=== PATIENT | male | born 1990 | race Caucasian/White ===

== ENCOUNTER 2019-11-21 21:33 | Observation (INO) ==
[2019-11-22] MEDS ORDERED: Naloxone 0.4 MG/ML INJ IVP PRN (02:17)
[2019-11-22] MEDS ORDERED: *HR* LORazepam 2 MG/ML VIAL IVP PRN ×3 (02:17)
[2019-11-22] MEDS: clonazePAM 1 MG TABLET PO SCH ×2 (02:29→08:36)
[2019-11-22] MEDS ORDERED: Thiamine (B-1) 100 MG, Folic Acid 1 MG, MVI, adult with vitamin K 10 ML in 0.9 % Sodi... IVPB SCH ×2 (02:34→18:00)
[2019-11-22 05:31] LABS: Hematocrit 48.5 % (37.5-50.1); Hemoglobin 16.6 g/dL (12.9-16.9); Mean Corpuscular HGB Conc 34.2 g/dL (31.6-35.5); Mean Corpuscular Hemoglobin 31.7 pg (28.0-33.3); Mean Corpuscular Volume 92.6 fL (83.0-100.0); Mean Platelet Volume 9.5 fL (9.4-12.4); Platelet Count 260 K/mcL (140-400); Red Blood Count 5.24 M/mcL (4.19-5.50); Red Cell Distribution Width 12.9 % (11.5-14.5); White Blood Count 8.1 K/mcL (4.3-11.1)
[2019-11-22 05:48] LABS: INR 1.1; Prothrombin Time 12.3 Seconds (9.4-12.1)
[2019-11-22 05:49] LABS: Alanine Aminotransferase 27 Units/L (7-52); Albumin 4.1 g/dL (3.5-5.7); Albumin/Globulin Ratio 1.5 (1.1-2.2); Alkaline Phosphatase 104 Units/L (34-104); Aspartate Amino Transferase 39 Units/L (13-39); BUN/Creatinine Ratio 9 (6-26); Bilirubin,Total 0.6 mg/dL (0.3-1.0); Blood Urea Nitrogen 8 mg/dL (6-20); Calcium 8.8 mg/dL (8.6-10.3); Carbon Dioxide 25 mEq/L (23-29); Chloride 102 mEq/L (98-107); Globulin 2.7 g/dL (2.4-3.5); Glucose 79 mg/dL (70-105); Magnesium 2.2 mg/dL (1.6-2.6); Osmolality,Calculated 285 (280-300); Phosphorous 3.4 mg/dL (2.7-4.5); Sodium 139 mEq/L (136-145); Total Protein 6.8 g/dL (6.4-8.9); eGFR For African Americans > 60 (> 60); eGFR For Non-African Americans > 60 (> 60)
[2019-11-22 09:03] VITALS: BP 112/69
[2019-11-22] MEDS ORDERED: amLODIPine 5 MG TABLET PO SCH (21:00)
[2019-11-25] MEDS ORDERED: Vitamin B Complex/Vit C/Vit E 1 EACH TABLET PO SCH (09:00)
[2019-11-25] MEDS ORDERED: Folic Acid 1 MG TABLET PO SCH (09:00)
[2019-11-25] MEDS ORDERED: Thiamine (B-1) 100 MG TABLET PO SCH (09:00)
[2019-11-25] MEDS ORDERED: clonazePAM 1 MG TABLET PO SCH (09:00)
== END 2019-11-22 14:10 | disposition home or self-care (01) ==
LOC: EMEROOARM 21:33 → 3BNU 21:33 → SUATTDRO 23:16 → 3BNU 23:47
PROVIDERS: ADMIT Family Medicine; ATTEND Internal Medicine

== ENCOUNTER 2019-12-11 17:15 | Inpatient (IN) ==
[2019-12-11 17:49] LABS: Bilirubin,Urine Negative (Negative); Blood,Urine Negative (Negative); Clarity,Urine Turbid (Clear); Color,Urine Yellow (Yellow); Glucose,Urine (UA) Normal (Normal); Ketones,Urine Negative (Negative); Leukocyte Esterase,Urine Negative (Negative); Nitrite,Urine Negative (Negative); PH,Urine 5.5 pH Units (5.0-8.0); Protein,Urine Negative (Neg-Trace); Specific Gravity,Urine 1.023 (1.010-1.025); Urobilinogen,Urine Normal (Normal)
[2019-12-11 17:52] LABS: Bacteria,Urine None Seen per hpf (None-Few); Hyaline Casts,Urine None Seen per lpf (None-Few); Squamous Epithelial Cell,Urine Moderate per lpf (None-Few); WBC,Urine 0-3 per hpf (0-3)
[2019-12-11 18:00] LABS: Amphetamine Screen,Urine Negative ng/mL (Cutoff=1000); Barbiturate Screen,Urine Negative ng/mL (Cutoff=200); Benzodiazepines Screen,Urine Negative ng/mL (Cutoff=200); Cannabinoid Screen,Urine Negative ng/mL (Cutoff = 50); Cocaine Screen,Urine Negative ng/mL (Cutoff= 300); Opiate Screen,Urine Negative ng/mL (Cutoff=300); Phencyclidine Screen,Urine Negative ng/mL (Cutoff=25)
[2019-12-11 18:26] LABS: Basophils % 0.5 %; Eosinophils # 0.3 K/mcL (0.0-0.6); Eosinophils % 4.9 %; Hematocrit 47.5 % (37.5-50.1); Hemoglobin 16.5 g/dL (12.9-16.9); Immature Granulocytes % 0.4 % (0-4); Lymphocytes # 1.6 K/mcL (0.6-4.6); Lymphocytes % 28.7 %; Mean Corpuscular HGB Conc 34.7 g/dL (31.6-35.5); Mean Corpuscular Hemoglobin 31.7 pg (28.0-33.3); Mean Corpuscular Volume 91.3 fL (83.0-100.0); Mean Platelet Volume 9.5 fL (9.4-12.4); Monocytes # 0.3 K/mcL (0.0-1.3); Monocytes % 6.2 %; Neutrophils # 3.3 K/mcL (1.6-8.9); Platelet Count 213 K/mcL (140-400); Red Cell Distribution Width 13.8 % (11.5-14.5); Segmented Neutrophils % 59.3 %; White Blood Count 5.5 K/mcL (4.3-11.1)
[2019-12-11 18:28] LABS: Estimated Average Glucose 105 mg/dl
[2019-12-11 18:47] LABS: Acetaminophen < 10 mcg/mL (10-20); BUN/Creatinine Ratio 11 (6-26); Blood Urea Nitrogen 9 mg/dL (6-20); Calcium 8.7 mg/dL (8.6-10.3); Carbon Dioxide 26 mEq/L (23-29); Chloride 106 mEq/L (98-107); Chol/HDL Ratio 3.3 (0-4.9); Cholesterol 163 mg/dL (< 200); Ethanol 262 mg/dL (Less than 10); Glucose 125 mg/dL (70-105); HDL Cholesterol 50 mg/dL (40-59); LDL Cholesterol,Calculated 83 mg/dL (0-99); Osmolality,Calculated 292 (280-300); Potassium 3.4 mEq/L (3.5-5.1); Salicylate < 2.5 mg/dL (15.0-30.0); Sodium 141 mEq/L (136-145); Triglycerides 151 mg/dL (< 150); eGFR For African Americans > 60 (> 60); eGFR For Non-African Americans > 60 (> 60)
[2019-12-11] MEDS ORDERED: Acetaminophen 325 MG TABLET PO PRN (20:05)
[2019-12-11] MEDS ORDERED: Ondansetron 4 MG/2 ML VIAL IVP PRN (20:05)
[2019-12-11] MEDS ORDERED: Naloxone 0.4 MG/ML INJ IVP PRN (20:05)
[2019-12-11] MEDS ORDERED: Potassium Citrate 10 MEQ TABLET.ER PO ONE (20:31)
[2019-12-11] MEDS: 0.9 % Sodium Chloride 1,000 ML IVC SCH (21:40)
[2019-12-12] MEDS: *HR* LORazepam 2 MG/ML VIAL IVP PRN ×2 (03:07→08:06)
[2019-12-12 04:24] LABS: Basophils % 0.7 %; Eosinophils # 0.3 K/mcL (0.0-0.6); Hemoglobin 15.4 g/dL (12.9-16.9); Immature Granulocytes % 0.3 % (0-4); Lymphocytes # 1.9 K/mcL (0.6-4.6); Lymphocytes % 30.2 %; Mean Corpuscular Hemoglobin 31.9 pg (28.0-33.3); Mean Corpuscular Volume 91.1 fL (83.0-100.0); Mean Platelet Volume 9.8 fL (9.4-12.4); Monocytes # 0.5 K/mcL (0.0-1.3); Monocytes % 8.3 %; Neutrophils # 3.4 K/mcL (1.6-8.9); Platelet Count 206 K/mcL (140-400); Red Blood Count 4.83 M/mcL (4.19-5.50); Red Cell Distribution Width 13.9 % (11.5-14.5); Segmented Neutrophils % 55.5 %; White Blood Count 6.2 K/mcL (4.3-11.1)
[2019-12-12 04:51] LABS: Alanine Aminotransferase 52 Units/L (7-52); Albumin 3.9 g/dL (3.5-5.7); Albumin/Globulin Ratio 1.4 (1.1-2.2); Alkaline Phosphatase 89 Units/L (34-104); Aspartate Amino Transferase 32 Units/L (13-39); BUN/Creatinine Ratio 13 (6-26); Bilirubin,Total 0.6 mg/dL (0.3-1.0); Blood Urea Nitrogen 10 mg/dL (6-20); Calcium 8.7 mg/dL (8.6-10.3); Carbon Dioxide 26 mEq/L (23-29); Chloride 102 mEq/L (98-107); Globulin 2.7 g/dL (2.4-3.5); Glucose 100 mg/dL (70-105); Magnesium 1.9 mg/dL (1.6-2.6); Osmolality,Calculated 291 (280-300); Phosphorous 2.9 mg/dL (2.7-4.5); Potassium 3.6 mEq/L (3.5-5.1); Sodium 141 mEq/L (136-145); Total Protein 6.6 g/dL (6.4-8.9); eGFR For African Americans > 60 (> 60); eGFR For Non-African Americans > 60 (> 60)
[2019-12-12] MEDS: 0.9 % Sodium Chloride 1,000 ML IVC SCH (05:43)
[2019-12-12 07:44] VITALS: BP 99/64
[2019-12-12] MEDS ORDERED: Folic Acid 1 MG TABLET PO SCH (09:00)
[2019-12-12] MEDS ORDERED: clonazePAM 1 MG TABLET PO SCH (09:00)
[2019-12-12] MEDS ORDERED: Thiamine (B-1) 100 MG, Folic Acid 1 MG, MVI, adult with vitamin K 10 ML in 0.9 % Sodi... IVPB SCH (18:00)
[2019-12-12] MEDS ORDERED: amLODIPine 5 MG TABLET PO SCH (21:00)
[2019-12-16] MEDS ORDERED: clonazePAM 1 MG TABLET PO SCH (09:00)
== END 2019-12-12 16:17 | disposition other institution (70) | DRG 753 ==
LOC: 3BNU 17:15 → EMEROOARM 17:15 → SUATTDRO 19:39 → 3BNU 20:29
PROVIDERS: ADMIT Internal Medicine; ATTEND Internal Medicine

== ENCOUNTER 2019-12-12 16:05 | Observation (INO) ==
[2019-12-12] MEDS ORDERED: Acetaminophen 325 MG TABLET PO PRN (16:36)
[2019-12-12] MEDS ORDERED: Mag Hydrox/Al Hydrox/Simeth 30 ML UDC PO PRN (16:36)
[2019-12-12] MEDS ORDERED: hydrOXYzine pamoate 25 MG CAPSULE PO PRN (16:36)
[2019-12-12] MEDS ORDERED: *HR* LORazepam 1 MG TABLET PO PRN ×2 (16:36→16:40)
[2019-12-12] MEDS ORDERED: MOM Conc 10 ML UD.LIQ PO PRN (16:36)
[2019-12-12] MEDS ORDERED: traZODone 50 MG TABLET PO PRN (16:36)
[2019-12-12] MEDS ORDERED: *HR* LORazepam 2 MG/ML VIAL IM PRN (16:36)
[2019-12-12] MEDS ORDERED: Haloperidol Lactate 5 MG/ML VIAL IM PRN (16:36)
[2019-12-12] MEDS: clonazePAM 1 MG TABLET PO SCH (20:08)
[2019-12-12] MEDS ORDERED: amLODIPine 5 MG TABLET PO SCH (21:00)
[2019-12-13] MEDS ORDERED: Thiamine (B-1) 100 MG TABLET PO SCH (09:00)
[2019-12-13] MEDS ORDERED: Vitamin B Complex/Vit C/Vit E 1 EACH TABLET PO SCH (09:00)
[2019-12-13] MEDS: clonazePAM 1 MG TABLET PO SCH (09:04)
[2019-12-13 12:02] VITALS: BP 131/80
== END 2019-12-13 17:35 | disposition home or self-care (01) ==
LOC: INTOOBSV 16:05 → 1ANU 16:05
PROVIDERS: ADMIT Psychiatry & Neurology Psychiatry; ATTEND Psychiatry & Neurology Psychiatry